=== PATIENT | female | born 1940 | race Caucasian/White ===

== ENCOUNTER 2017-07-13 12:48 | Outpatient (POV) | payer OTHER | END 2017-07-13 17:00 | LOC: OUTPT 12:48 | PROVIDERS: ATTEND Otolaryngology | DX: H91.90 Unspecified hearing loss, unspecified ear (principal) ==

== ENCOUNTER 2017-10-23 12:56 | Outpatient (CLI) | END 2017-10-23 13:17 | disposition short-term general hospital (02) | LOC: AMBL 12:56 | PROVIDERS: ATTEND Emergency Medicine | DX: R55 Syncope and collapse (principal); I10 Essential (primary) hypertension ==

== ENCOUNTER 2018-07-25 08:18 | Outpatient (CLI) ==
--- NOTE | 2018-07-25 08:53 | US ---
EXAM: Renal ultrasound. History: Abnormal renal function tests. Technique: Multiple sonographic images through the kidneys were obtained. Color duplex Doppler was used to interrogate vascular flow. Findings: Diffuse bladder wall thickening. There is debris seen within the bladder lumen. Neither ureteral je t was seen. The right kidney measures 10 cm in long length demonstrating normal cortical echogenicity without mary lou dence for hydronephrosis, mass or shadowing calculus. The left kidney measures 10.3 cm in long length demonstrating normal cortical echogenicity without ev idence for hydronephrosis, mass or shadowing calculus. Impression: 1. Sonographically normal kidneys. 2. Findings indicate cystitis. Correlate with urinalysis.
== END 2018-07-25 08:19 | disposition home or self-care (01) ==
LOC: RAD 08:18
PROVIDERS: ATTEND Nurse Practitioner
DX: R94.4 Abnormal results of kidney function studies (principal)